=== PATIENT | female | born 1980 | race Caucasian/White ===

== ENCOUNTER → 2018-01-24 | Outpatient (CLI) | payer OTHER ==
[2018-01-24 11:13] LABS: HCT 44.8 % (34.0-46.0); HGB 14.6 gm/dL (11.4-16.0); MCH 30.8 pg (25.0-35.0); MCHC 32.6 g/dL (31.0-37.0); MCV 94.6 fL (80.0-100.0); Mean Platelet Volume 7.2; Platelet Count 226 k/uL (150-450); RBC 4.74 m/uL (3.80-5.40); RDW 12.4 % (11.5-15.5); WBC 6.1 k/uL (3.8-10.6)
--- NOTE | 2018-01-24 11:21 | US ---
EXAMINATION TYPE: US pelvic complete DATE OF EXAM: 01/24/2018 COMPARISON: NONE CLINICAL HISTORY: N92.0 Excessive and frequent menstruation with reg. TECHNIQUE: Transabdominal (TA). Date of LMP: 12/31/2017 EXAM MEASUREMENTS: Uterus: 11.8 x 5.0 x 7.2 cm Endometrial Stripe: 0.9 cm Right Ovary: 3.1 x 1.7 x 2.7 cm Left Ovary: 2.8 x 2.1 x 2.3 cm 1. Uterus: Anteverted 2. Endometrium: wnl 3. Right Ovary: wnl 4. Left Ovary: 5. Bilateral Adnexa: wnl 6. Posterior cul-de-sac: no free fluid Heterogeneous anteverted uterus without suspicious endometrial thickening for secretory phase of mens trual cycle. Both ovaries are present. No suspicious extraovarian adnexal lesion is seen. IMPRESSION: Fairly unremarkable study.
[2018-01-24 11:44] LABS: T4, Free (Free Thyroxine) 0.92 ng/dL (0.78-2.19)
== END | disposition home or self-care (01) ==
LOC: RADUSWWP 09:29
PROVIDERS: ATTEND Obstetrics & Gynecology
DX: N92.0 Excessive and frequent menstruation with regular cycle (principal); N93.8 Other specified abnormal uterine and vaginal bleeding; Z13.29 Encounter for screening for other suspected endocrine disorder
CPT/HCPCS: 76856; 82670; 82947; 83001; 83002; 84146; 84439; 84443; 84479; 85027